=== PATIENT | female | born 1990 | race African-American/Black ===

== ENCOUNTER 2018-02-18 11:32 | Emergency (ER) | payer OTHER ==
[2018-02-18] MEDS ORDERED: methylPREDNISolone Sod Succ/PF 125 MG/2 ML VIAL ONE (11:47)
[2018-02-18] MEDS ORDERED: diphenhydrAMINE 50 MG/ML VIAL ONE (11:47)
[2018-02-18] MEDS ORDERED: EPINEPHrine 1 MG/ML AMP ONE (13:27)
== END 2018-02-18 15:56 | disposition home or self-care (01) ==
LOC: NAV ERS 11:32
DX: T78.40XA Allergy, unspecified, initial encounter (principal); Y99.0 Civilian activity done for income or pay
CPT/HCPCS: 96372; J0171; J1200; J2930